=== PATIENT | male | born 1965 | race Caucasian/White ===

== ENCOUNTER 2018-02-23 18:41 | Emergency (ER) | payer OTHER ==
[~2018-02-23] VITALS: Ht 170.2 cm; Wt 103.0 kg
[~2018-02-23 18:41] MED LIST: ATORVASTATIN CA40 M1 PO; GLIPIZIDE METFORMIN PO; LISINOPRIL10 MG PO; MELOXICAM15 M1 PO; SEN PO; SOLU-MEDRO1000 MG/VI IM; TRAMADOL HCL50 MG PO
[2018-02-23 18:49] VITALS: Ht 170.2 cm; Wt 103.0 kg
[2018-02-23 19:32] LABS: CALCIUM 9.3 mg/dL (8.5-10.1); CARBON DIOXIDE 27.7 mmol/L (21-32); CHLORIDE SERUM 98 mmol/L (98-107); CREATININE SERUM 1.2 mg/dL (0.7-1.3); GFR1 > 60 mL/min; GLUCOSE SERUM 194 mg/dL (74-106); POTASSIUM SERUM 4.1 mmol/L (3.5-5.1); SODIUM SERUM 133 mmol/L (136-145)
[2018-02-23 19:33] LABS: BASOPHIL % 0.3 % (0-2); PLATELET COUNT 195 x10^3mcL (130-400); RED CELL DISTRIBUTION WIDTH 12.7 % (11.5-14.5)
[2018-02-23 19:36] LABS: ALKALINE PHOSPHATASE 83 U/L (46-116); ALT/SGPT 50 U/L (16-63); AST/SGOT 28 U/L (15-37); BILIRUBIN TOTAL 0.5 mg/dL (0.20-1.00); TOTAL PROTEIN, SERUM 8.2 g/dL (6.4-8.2)
[2018-02-23 23:03] VITALS: BP 174/97
== END 2018-02-23 23:03 | disposition home or self-care (01) ==
LOC: ED 18:41
PROVIDERS: Emergency Medicine
DX: I16.0 Hypertensive urgency (principal); E11.9 Type 2 diabetes mellitus without complications; E78.00 Pure hypercholesterolemia, unspecified
CPT/HCPCS: 82962; J2270; J2405